=== PATIENT | female | born 1965 | race Native Hawaiian/Other Pacific Islander ===

== ENCOUNTER 2016-06-19 20:34 | Emergency (ER) | payer OTHER ==
[~2016-06-19] VITALS: Ht 149.9 cm; Wt 81.6 kg
[2016-06-19 21:34] LABS: PLATELET COUNT 337 K/uL (152-353)
[2016-06-19 21:40] LABS: POTASSIUM 3.8 mmol/L (3.6-5.2); SODIUM 137 mmol/L (136-145)
[2016-06-19 21:51] LABS: PARTIAL THROMBOPLASTIN TIME 26.3 SECONDS (24.5-33.6)
[2016-06-19 23:58] VITALS: BP 152/70; TEMP 98.4
== END 2016-06-20 00:02 | disposition home or self-care (01) ==
LOC: ED 20:34
PROVIDERS: Emergency Medicine
DX: K21.9 Gastro-esophageal reflux disease without esophagitis (principal); K20.9 Esophagitis, unspecified; K80.50 Calculus of bile duct without cholangitis or cholecystitis without obstruction
CPT/HCPCS: 36415; 80053; 82550; 84484; 85027; 85379; 85610; 85730; 99283

== ENCOUNTER 2017-06-02 08:06 | Outpatient (CLI) | payer OTHER | END 2017-06-02 21:45 | disposition home or self-care (01) | LOC: MAMMO 08:06 | DX: N64.4 Mastodynia (principal); R10.11 Right upper quadrant pain ==

== ENCOUNTER 2019-04-28 08:33 | Outpatient (CLI) | payer OTHER | END 2019-04-28 19:38 | disposition home or self-care (01) | LOC: MAMMO 08:33 | DX: Z12.31 Encounter for screening mammogram for malignant neoplasm of breast (principal) ==

== ENCOUNTER 2019-10-17 13:59 | Outpatient (CLI) | payer OTHER | END 2019-10-17 19:22 | disposition home or self-care (01) | LOC: LAB 13:59 | PROVIDERS: ATTEND Family Medicine | DX: U07.1 COVID-19 (principal); Z20.828 Contact with and (suspected) exposure to other viral communicable diseases | CPT/HCPCS: 87635; G2023; U0003 ==